=== PATIENT | male | born 1985 ===

== ENCOUNTER 2024-05-24 07:03 | Outpatient (CLI) | payer OTHER ==
--- NOTE | 2024-05-24 15:40 | MRI Report ---
PROCEDURE: Lumbar Spine WO INDICATIONS: LOW BACK PAIN TECHNIQUE: Noncontrast sagittal T1 spin echo and T2 fast echo, sagittal STIR, axial T1 and T2 fast spin echo thr ough the lumbar spine. In cases with scoliosis, additional coronal T2 fast spin echo may be performe d. COMPARISON: None. FINDINGS: Image quality: Excellent. Alignment and Curvature: Straightening of the normal lumbar lordosis. Transitional vertebral body david lorena with lumbarization of S1 vertebral body.. Bone Marrow: Marrow is of normal overall signal. No acute vertebral body compression fractures. Spinal Cord: Conus medullaris terminates at the L2 level. Visualized cord demonstrates normal signa l and size. Paraspinous Soft Tissues: No paravertebral masses. T12-L1: Normal in appearance. L1-L2: Normal in appearance. L2-L3: Normal in appearance. L3-L4: Mild disc desiccation. Facet arthropathy and thickening of ligamentum flavum. No significant central canal or neuroforaminal stenosis. L4-L5: Disc desiccation and moderate disc height loss. Small central disc protrusion and posterior annular tear. Facet arthropathy. No significant central canal stenosis. No neuroforaminal stenosis. L5-S1: Disc desiccation and moderate disc height loss. Small central disc protrusion. Facet arthrop athy. No central canal stenosis. No significant neuroforaminal stenosis. 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 Reviewed by: Joe Beaver MD on 05/24/2024 3:39 PM PDT Approved by: Joe Beaver MD on 05/24/2024 3:39 PM PDT Station ID: [id number]
== END 2024-05-24 07:04 | disposition home or self-care (01) ==
LOC: DI 07:03
PROVIDERS: ATTEND Nurse Practitioner Family
DX: M51.36 Other intervertebral disc degeneration, lumbar region (principal); M47.816 Spondylosis without myelopathy or radiculopathy, lumbar region; M51.37 Other intervertebral disc degeneration, lumbosacral region; M47.817 Spondylosis without myelopathy or radiculopathy, lumbosacral region; M51.27 Other intervertebral disc displacement, lumbosacral region